=== PATIENT | female | born 2000 | race Caucasian/White ===

== ENCOUNTER 2023-04-07 09:19 | Emergency (ER) | payer MEDICAID ==
[~2023-04-07] VITALS: Ht 170.2 cm; Wt 54.4 kg
[2023-04-07 09:25] VITALS: BP 129/78; TEMP 97.9; O2SAT 98
[2023-04-07 09:53] LABS: PREGNANCY TEST URINE QUAL NEGATIVE (NEGATIVE)
[2023-04-07] MEDS ORDERED: IBUPROFEN 600 MG TABLET PO ONE (10:00)
[2023-04-07] MEDS ORDERED: IBUPROFEN 600 MG TABLET ONE (10:04)
== END 2023-04-07 11:38 | disposition home or self-care (01) ==
LOC: ER 09:35
DX: S20.211A Contusion of right front wall of thorax, initial encounter (principal); V89.2XXA Person injured in unspecified motor-vehicle accident, traffic, initial encounter; Y93.89 Activity, other specified; Y92.89 Other specified places as the place of occurrence of the external cause; Y99.8 Other external cause status
CPT/HCPCS: 71100-TC; 84703-TC